=== PATIENT | female | born 1960 | race African-American/Black ===

== ENCOUNTER 2017-08-06 06:27 | Day surgery (SDC) | payer MEDICAID ==
[~2017-08-06] VITALS: Ht 165.1 cm; Wt 89.1 kg
[2017-08-06 07:55] LABS: HEMATOCRIT 36.8 % (36.0-48.0); HEMOGLOBIN 11.8 g/dL (12-16); MCH 29.1 pg (26.0-34.0); MCHC 32.1 g/dL (31.0-37.0); MCV 90.6 fL (80.0-100.0); MEAN PLATELET VOLUME 9.4 fL (7.4-10.4); RBC 4.06 10x6/uL (4.00-5.40); RDW 13.6 % (11.5-14.5); WBC 5.3 10x3/uL (4.8-10.8)
[2017-08-06] MEDS ORDERED: BREO ELLIPTA 21 EACH (08:19)
[2017-08-06] MEDS ORDERED: HYZAAR 100-25 T1 TAB PO (08:19)
[2017-08-06] MEDS ORDERED: VALIUM5 MG PO (08:20)
[2017-08-06] MEDS ORDERED: CYMBALTA30 MG PO (08:21)
[2017-08-06] MEDS ORDERED: MOBIC7.5 MG PO (08:22)
[2017-08-06] MEDS ORDERED: ULTRAM50 MG PO (08:24)
[2017-08-06 08:26] VITALS: BP 130/63; Ht 165.1 cm; Wt 89.1 kg
--- NOTE | 2017-08-06 09:51 | NUR ---
DILATED TO 60.
--- NOTE | 2017-08-06 14:35 | NUR ---
1115--IV DC'D. IRAM SAWN 1130--DISCHARGE INSTRUCTIONS GIVEN, PT VERBALIZES UNDERSTANING. PT OFF UNIT VIA WC. IRAM SWAN
--- NOTE | 2017-09-01 15:36 | OP ---
PATIENT NAME: NÉSTOR MARTEL MEDICAL RECORD: [id number] :60 LOCATION:D[facility] ADMISSION DATE: SURGEON: FLORES WADE MD DATE OF OPERATION: 08/06/2017 PROCEDURE: EGD with balloon dilatation and EGD with biopsy. [employer] ATTENDANT: Flores Wade MD SCOPE: Olympus video gastroscope. MEDICATIONS: Per TIVA anesthesia. The patient has restrictive lung disease, obstructive sleep apnea, asthma, and required a TIVA anesthesia. She received 200 mg of propofol during this procedure, O2 4 liters. INDICATION FOR THE PROCEDURE: Dysphagia and gastroesophageal reflux disease. FINDINGS: Informed consent was given. The patient was made comfortable with the above medications. After reaching an adequate level of sedation by slow IV push, the patient was placed on her left side. The endoscope was then advanced under direct visualization through the posterior pharyngeal area and advanced to the distal esophagus. At this area, a stenotic Schatzki ring was appreciated and a [employer] Micro[employer] balloon was placed in this area, inflated to 60-Cambodian, and was then desufflated after it was noticed that the patient had a slight amount of bleeding due to friability of the distal esophageal tissue. A small hiatal hernia was also noted on direct and retroflex views. On entering the stomach; inflammation, erythema, and edema was appreciated throughout the entire stomach, but this was most pronounced with some small erosions at the antral area. A Helicobacter pylori and histopathology biopsy was taken in this area. The duodenal bulb to the second portion had mild inflammation present and a biopsy was taken within the second part of the duodenum. The scope was then withdrawn. IMPRESSION: 1. Distal Schatzki's ring dilated to 60-Cambodian, a slight amount of bleeding was noted and the balloon was deflated before an entire minute duration. 2. Small hiatal hernia. 3. Erosive gastritis, Helicobacter pylori, histopathology biopsy taken at the antral area. 4. Mild duodenitis, biopsy obtained. PLAN: 1. Prilosec 20 mg p.o. q.a.m. and famotidine 20 mg p.o. at bedtime. 2. Caution with anti-inflammatory drugs and none for 14 days. 3. The patient to follow reflux precautions stringently, both dietary and positional. No chocolate, tomatoes, citrus, caffeine, fatty foods, peppermint. The patient should not eat late at night and should sit up for 2 hours after every meal. Should she reflux during nighttime hours, she should sleep with the head of the bed elevated about 6 inches. 4. Return to clinic on a p.r.n. basis. TRANSINT:[id number] Voice Confirmation ID: [id number] DOCUMENT ID: [id number] CC: LAUREEN Lama [id number] OPERATIVE REPORT [id number] NÉSTOR MARTEL BRENDA MD at 1536 CC: SHEYLA GARDUNO and MARCELLE BRAXTON [id number] DICTATION DATE: 08/06/17 1005 [employer] MANAGER: 08/06/17 1524 [facility] 08/06/17 [id number] [place] [address]
== END 2017-08-06 11:30 | disposition home or self-care (01) ==
LOC: D.OPS 06:27
PROVIDERS: Anesthesiology
DX: K22.2 Esophageal obstruction (principal); K44.9 Diaphragmatic hernia without obstruction or gangrene; K29.00 Acute gastritis without bleeding; K29.80 Duodenitis without bleeding; K21.9 Gastro-esophageal reflux disease without esophagitis; J45.909 Unspecified asthma, uncomplicated; G47.33 Obstructive sleep apnea (adult) (pediatric); Z01.812 Encounter for preprocedural laboratory examination